=== PATIENT | male | born 1955 | race Caucasian/White ===

== ENCOUNTER → 2024-04-04 08:36 | Outpatient (REF) | payer MEDICARE, OTHER, SELFPAY | LOC: PAVMRI 08:36 | PROVIDERS: ATTENDING PHYSICIAN Internal Medicine Cardiovascular Disease; FAMILY PHYSICIAN Family Medicine | DX: I42.8 Other cardiomyopathies (principal) | CPT/HCPCS: 75561; 75565; A9585 ==